=== PATIENT | male | born 1995 | race Caucasian/White ===

== ENCOUNTER → 2016-12-15 | Day surgery (SDC) | payer OTHER ==
--- NOTE | ~2016-12-15 | OR ---
Unit #: [id number] #: [id number] Patient: YORDY SOLORZANO [id number] [address] [address] [id number] O MR#: [id number] NAME: YORDY SOLORZANO ROOM: Date of Procedure: 12/15/2016 Admission Date: 12/15/2016 Surgeon: Fransico Werner M.D. : 1995 Attending Physician: Fransico Werner M.D. Referring Physician: Fransico Werner M.D. Primary Care Physician: No Primary Care Physician PROCEDURE OPERATIVE NOTE PREOPERATIVE DIAGNOSIS Left ureteral stone. POSTOPERATIVE DIAGNOSIS Left ureteral stone. PROCEDURE PERFORMED 1. Cystoscopy. 2. Left ureterostomy. 3. Left laser lithotripsy. 4. Left stone basket extraction. 5. Left retrograde pyelogram. 6. Interpretation of left retrograde pyelogram. 7. Left 6-Honduran x 24 cm double J stent with string attached. SURGEON Fransico Werner M.D. ANESTHESIA General. INDICATIONS FOR PROCEDURE Mr. Solorzano is a pleasant 21-year-old male with a left 7 mm distal ureteral stone status post left ESWL and stent placement. He had significant residual stone. The risks, benefits and alternatives including bleeding, infection, damage to adjacent structures including the kidney, ureter, bladder and urethra, need for further surgery, as well as risk of anesthesia were explained to the patient. Informed consent was obtained. He wished to proceed. DESCRIPTION OF PROCEDURE The patient was taken to the operative suite and properly identified. After the application of satisfactory general anesthetic, the patient was placed in the dorsal lithotomy position. All pressure points were padded to the satisfaction of the surgical, anesthetic and nursing teams. I grasped the string and brought the stent out of his meatus. I passed a 0.035 Sensor wire which coiled in the left renal pelvis. I removed the stent. I passed a semirigid ureteroscope alongside the wire. I encountered the stone in the distal ureter. I used a 270-micron Holmium laser at settings of 0.6 J and 6 Hz. The stone fragmented. I used a Nitinol basket. All significant stone fragments were removed. I shot a left retrograde pyelogram. The findings were as follows. Unit #: [id number] #: [id number] Patient: YORDY SOLORZANO Interpretation of left retrograde pyelogram: There was no hydronephrosis. There was slow drainage from the distal ureter due to edema. There was a single collecting system. There are no filling defects. Based on the edema and the slow drainage on the retrograde, I elected to leave a stent. I passed a 6-Honduran x 24 cm double J stent whish coiled in renal pelvis in the bladder. I did leave the string attached. The bladder was emptied. The scope was removed. The Uro-Jet was passed. Stones were sent as specimen. The patient tolerated the procedure well without complications. He was transported stable and extubated to the PACU. PLAN Plan will be for the patient to follow up in approximately four days for stent removal. He does have a string. Dictated by... Fransico Werner M.D. TJ/kaitlynn TD: 12/15/2016 21:04 JOB #: [id number] PROCEDURE OPERATIVE NOTE Page 1 of 1 X Fransico Werner MD X PROCEDURE OPERATIVE NOTE
== END | disposition home or self-care (01) ==
LOC: CSUR 13:51
PROVIDERS: Urology
DX: N20.1 Calculus of ureter (principal); F17.210 Nicotine dependence, cigarettes, uncomplicated; Z90.49 Acquired absence of other specified parts of digestive tract
CPT/HCPCS: 82365; 88300; C1758; C2617; J0690; J2250; J2405; J3010